=== PATIENT | male | born 1950 | race Caucasian/White ===

== ENCOUNTER 2017-04-28 18:42 | Emergency (ER) | payer OTHER ==
[~2017-04-28] VITALS: Ht 170.2 cm; Wt 113.6 kg
[2017-04-28 18:57] VITALS: BP 165/75; PULSE 61; RESP 18; O2SAT 95
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
[2017-04-28 20:52] VITALS: BP_SYST 146; BP_SYST 151; BP_DIAS 68; BP_DIAS 70; PULSE 79; RESP 20; O2SAT 98
[2017-04-28] MEDS ORDERED: _HYDROcodone/APAP 5-325 mg Tablet PO PRN (21:10)
[2017-04-28] MEDS ORDERED: HYDR-4003 PO (21:26)
== END 2017-04-28 21:40 | disposition home or self-care (01) ==
LOC: SED 18:42 → EDBD 18:42 → SED 21:40
DX: S16.1XXA Strain of muscle, fascia and tendon at neck level, initial encounter (principal); S09.8XXA Other specified injuries of head, initial encounter; V63.5XXA Driver of heavy transport vehicle injured in collision with car, pick-up truck or van in traffic accident, initial encounter; Y93.89 Activity, other specified; Y92.410 Unspecified street and highway as the place of occurrence of the external cause; Y99.8 Other external cause status; Z85.6 Personal history of leukemia; Z85.89 Personal history of malignant neoplasm of other organs and systems; Z98.890 Other specified postprocedural states